=== PATIENT | male | born 1975 | race Caucasian/White ===

== ENCOUNTER → 2022-10-30 | Outpatient (CLI) | payer OTHER ==
[~2022-10-30] MED LIST: AMOXICILLIN500 MG PO; ANTRONEX; AUGMENTIN XR 101 TER PO; COUMADIN10 M1 PO; DEMEROL50 M1 PO; FOLIC ACID1 MG PO; IMMUPLEX; LOPRESSOR25 MG PO; PLAVIX75 MG PO; PRILOSEC20 MG PO; SINGULAIR10 MG PO; TRAMADOL HCL50 MG PO; VICODIN ES 7501 TAB PO; VITAMIN D50000 I3 PO
== END | disposition home or self-care (01) ==
LOC: US 00:37
PROVIDERS: ATTEND Family Medicine
DX: N50.3 Cyst of epididymis (principal)